=== PATIENT | female | born 1940 | race Caucasian/White ===

== ENCOUNTER 2016-11-20 14:16 | Outpatient (CLI) | payer MEDICARE, BC ==
--- NOTE | 2016-11-21 17:51 | PET ---
NUCLEAR MEDICINE FDG PET CT WHOLE BODY: (Positron Emission Tomography) DATE: 11/20/16 HISTORY: 76-year-old female with lymphoma, restaging. New liver mass found on CT of 11/10/16 from [facility]. COMPARISON: PET scan of 12/22/13. TECHNIQUE: IV injection F-18 Fluorodeoxyglucose (FDG) dose: 13.5 mCi Whole body PET and attenuation-correction CT performed from skull base to proximal thighs. FINDINGS: SUV (standard uptake value) numbers given are maximum SUV's: The previously described large left inferior axillary very hypermetabolic lymph node has resolved. T he previously mentioned hypermetabolic left axillary lymph node and left subpectoral (internal mamma ry) lymph node have also resolved. There are 3 new hypermetabolic lymph nodes at the thoracic inlet, left greater than right: SUV of 5. 9 at right tracheoesophageal groove; left paraesophageal SUV 9.9; just lateral to that one has SUV o f 13.3. There is a new hypermetabolic focus with SUV of 10.8 in the C3 vertebral body. There is a new right upper hilar lymph node with SUV of 8.9. New mild hypermetabolic left posterior hilar lymph node with SUV of 5.5. Right mediastinal lymph node anterior to the right mainstem bronch us with SUV of 3.9 is new. New finding of many hypermetabolic lesions in the left lobe, right lobe, and caudate lobes of the li cassie. For example, there is a moderately large region at the dome of the right lobe of the liver in h epatic segment 7 with SUV of 12.6. (These are the solid masses, not the multiple pre-existing benign hepatic cysts). There is severe hypermetabolic activity throughout very enlarged, matted lymph nodes in the beata he patis, with SUV up to 16.1. Multiple large hypermetabolic upper retroperitoneal periaortic lymph nodes. For example, one on the left has SUV of 15.6. No hypermetabolic lymph nodes are identified in the lower portion of the retroperitoneum. A focus of hypermetabolic activity with SUV of 6.1 in the vicinity of the left external iliac chain may instea d represent activity in a portion of distal ureter. Otherwise, no definite evidence of involvement o f lymph nodes in the rest of the pelvis. IMPRESSION: 1. A large number of malignant foci, new since the previous PET scan of 12/22/13. These could eithe r represent involvement by lymphoma or metastatic lesions from another primary malignancy. 2. The most severe involvement involves the upper paraaortic lymph nodes and periportal lymph nodes . 3. Numerous new hepatic malignant lesions. 4. New bilateral hilar malignant lesions, right greater than left, and right mediastinal lymph node . 5. New malignant lymph nodes at the thoracic inlet bilaterally. 6. New single intraosseous malignant activity in the upper cervical spine. 7. The previous malignant activity involving the left axillary and left internal mammary lymph node s have resolved. JANES Alanis POS: [facility]
== END 2016-11-20 14:17 | disposition home or self-care (01) ==
LOC: PET 14:16
PROVIDERS: ATTEND Internal Medicine Hematology & Oncology
DX: C84.48 Peripheral T-cell lymphoma, not elsewhere classified, lymph nodes of multiple sites (principal); C22.8 Malignant neoplasm of liver, primary, unspecified as to type
CPT/HCPCS: 78815; A9552

== ENCOUNTER → 2016-11-24 | Day surgery (SDC) | payer MEDICARE, BC ==
[2016-11-24 08:40] LABS: #Basophils 0.1 thou/uL (0.0-0.2); #Lymphocytes 0.7 thou/uL (1.20-3.40); #Monocytes 0.7 thou/uL (0.11-0.59); #Neutrophils 6.2 thou/uL (1.40-6.50); %Basophils 1.5 % (0.0-1.0); %Eosinophils 0.2 % (0.0-10.0); %Lymphocytes 9.4 % (21.0-51.0); %Monocytes 9.1 % (0.0-10.0); Hematocrit 36.3 % (36.0-47.0); Mean Platelet Volume 5.6 fL (7.4-10.4); White Blood Cell (WBC) Count 7.7 thou/uL (4.8-10.8)
[2016-11-24 08:49] LABS: PTT 33.2 SEC (22.9-36.1); Prothrombin Time 14.8 SEC (12.0-14.7)
[2016-11-24 09:32] VITALS: TEMP 98.8
--- NOTE | 2016-11-24 12:39 | CT ---
CT GUIDED LIVER BIOPSY: 11/24/2016 HISTORY: Multiple liver masses. TECHNIQUE: Informed consent was obtained from the patient. The left hepatic lobe lesion was prepped and draped in the usual sterile manner. Using CT guidance, the left hepatic lobe lesion was localized. A sma ll dermatotomy was made after 1% Lidocaine solution was used to anesthetize the overlying soft tissu es. An outer 17 gauge needle was placed, under CT guidance, into the left hepatic lesion. Three 18 gauge, 2.2 cm core biopsies were obtained. All three specimens were given to the pathologist for f urther workup, including full flow cytometry. No complications encountered during the course of the exam. A single Gelfoam pledget was placed in the biopsy tract. Successful CT-guided liver mass biopsy. Pathology is pending. POS: [facility]
== END ==
LOC: CT 08:26
PROVIDERS: ATTEND Internal Medicine Hematology & Oncology
DX: C86.5 Angioimmunoblastic T-cell lymphoma (principal); C22.8 Malignant neoplasm of liver, primary, unspecified as to type; H43.819 Vitreous degeneration, unspecified eye; M19.90 Unspecified osteoarthritis, unspecified site
CPT/HCPCS: 36415; 47000; 77012; 85025; 85610; 85730; 88184; 88307; 88312; 88333; 88334; 88341; 88342; 88360

== ENCOUNTER 2017-02-01 08:14 | Outpatient (CLI) | payer MEDICARE, BC ==
--- NOTE | 2017-02-01 15:11 | PET ---
PET CT EVALUATION FROM SKULL TO MID THIGH: INDICATION: History of lymphoma; restaging exam. TECHNIQUE: PET CT images were obtained from the skull base to the mid thighs. CT images were obtained for atten uation correction purposes only. 11.46 mCi of F18-FDG IV were administered for the exam. COMPARISON: Recent PET CT evaluation 11/20/16. FINDINGS: The biodistribution for the examination appears acceptable. HEAD AND NECK: There is worsening hypermetabolic lymphadenopathy seen within the posterior neck chains as well as wi thin the supraclavicular regions bilaterally. There are numerous hypermetabolic lymph nodes seen wit hin the bilateral neck chains as well as within the posterior occipital region. CHEST: The previously seen hypermetabolic lymph nodes within the upper mediastinum just adjacent to the thyr oid gland have largely resolved; however, there is a persistent hypermetabolic lymph node seen adjace nt to the left thyroid lobe with a peak SUV value of 8.4 and a mean value of 5.39. Additionally, the re are numerous new hypermetabolic superclavicular lymph nodes now present. There is hypermetabolic activity seen adjacent to the distal clavicle suspicious for a new osseous met. The previously seen hypermetabolic right suprahilar and left posterior hilar lymph nodes have diminished in uptake; howev er, there is a new hypermetabolic lymph node seen adjacent to the right paravertebral region. There is an additional hypermetabolic pericardial lymph node now present with a peak SUV value of 7.09 and mean value of 5.07. No hypermetabolic pleural effusion is grossly evident. ABDOMEN AND PELVIS: There are more numerous hypermetabolic lesions involving the liver suspicious for worsening hypermeta bolic metastatic disease of the liver. The large confluent lymphadenopathy involving the upper periaortic region has largely diminished; how ever, it has been replaced with newer areas of hypermetabolic lymphadenopathy of the upper abdomen. The most prominent is seen to the right aspect of the IVC where this enlarged lymph node has a peak S UV value of 59 and a mean value of 9.65. There remain a few scattered hypermetabolic lymph nodes wit hin the periaortic region. Prominent activity within the renal collecting system slightly limits the image detail. No definite hypermetabolic lymphadenopathy is seen within the pelvis. Again seen is a fibroid uterus and a moderate amount of retained stool within the colon. SKIN AND OSSEOUS STRUCTURES: There is worsening hypermetabolic osseous metastatic involvement. There are new foci of hypermetabolic activity seen within the sacral promontory and bilateral manolo. There is a new hypermetabolic lesion within the right acetabulum with a peak SUV value of 10.21 and a mean value of 7.46. There are new metastatic lesions involving the spinous process of L3, the left aspect of T12 vertebral body, the right transverse process of T4, the right C6 lamina, and the left d istal clavicle. The previously seen C3 osseous metastatic lesion is no longer identified. IMPRESSION: Abnormal PET scan. Findings of mixed response to therapy. Some of the hypermetabolic lymphadenopathy is seen within the upper aspect of the mediastinum, both hilar regions and upper abdomen have intervally resolved; mojica cassie, they have been replaced with additional foci of new hypermetabolic lymphadenopathy. There is wo rsening hypermetabolic metastatic disease of the liver and osseous structures. Overall, findings are consistent with worsening disease. POS: [facility]
== END 2017-02-01 08:15 | disposition home or self-care (01) ==
LOC: PET 08:14
PROVIDERS: ATTEND Internal Medicine Hematology & Oncology
DX: C84.48 Peripheral T-cell lymphoma, not elsewhere classified, lymph nodes of multiple sites (principal); C79.51 Secondary malignant neoplasm of bone; C78.7 Secondary malignant neoplasm of liver and intrahepatic bile duct
CPT/HCPCS: 78815; A9552

== ENCOUNTER 2017-04-28 08:07 | Outpatient (CLI) | payer MEDICARE, BC ==
--- NOTE | 2017-04-28 12:22 | PET ---
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 Status post last chemotherapy on 04/14/17 . Exam requested for restaging. TECHNIQUE: PET scanning with CT attenuation correction was performed from the base of the brain through the prox imal thighs following the intravenous of 12mCi FDG. Imaging was performed after an uptake interval of 46 minutes. COMPARISON: PET CT dated 02/01/17. FINDINGS: There has been interval resolution of the numerous lesions seen on the previous PET scan. No lou hy permetabolism is noted in the neck, chest, abdomen, pelvis, or inguinal regions. No hypermetabolic pu lmonary nodules, liver, adrenal, or skeletal lesions are identified. There is physiologic activity in the GI and tracts. Uptake is also noted in the brown fat in the l ower neck. The CT scan used for attenuation correction demonstrates no evidence of pleural effusions or ascites. The previously noted lesions do not demonstrate an uptake above background level. This corresponds to a Deauville criteria score of 1. IMPRESSION: Complete response (Deauville score 1) to therapy since 02/01/17. POS: [facility]
== END 2017-04-28 08:08 | disposition home or self-care (01) ==
LOC: PET 08:07
PROVIDERS: ATTEND Internal Medicine Hematology & Oncology
DX: C84.48 Peripheral T-cell lymphoma, not elsewhere classified, lymph nodes of multiple sites (principal)
CPT/HCPCS: 78815; A9552

== ENCOUNTER 2017-11-03 08:08 | Outpatient (CLI) | payer MEDICARE, BC ==
--- NOTE | 2017-11-03 11:25 | PET ---
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 Patient is ongoing chemotherapy. Exam req uested for restaging. TECHNIQUE: PET scanning with CT attenuation correction was performed from the base of the brain through the prox imal thighs following the intravenous administration of 12.3 mCi F18-FDG in the left antecubital devaughn a. Imaging performed after an uptake interval of 57 minutes. COMPARISON: PET CT dated 04/28/17. FINDINGS: Interval development of multiple new lesions has occurred since the previous study. There is a hyperm etabolic right internal mammary lymph node with a SUV of 3.3. A small hypermetabolic soft tissue nodu le anterior to the right lobe of the liver is noted with a SUV of 3.8. There are new hypermetabolic liver lesions with a maximum SUV of 7.7 in the posterior segment of the right lobe. Hypermetabolic lymph nodes in the abdomen are present with SUV of 5.2 in the anterior peripancreatic region and 3.7 in the left paraaortic lymph node. Focus of increased uptake in the right sacrum has a SUV of 9.5. There is physiologic activity in the GI and tracts, and visualized portions of the brain. No hypermetabolic pulmonary nodules or adrenal lesions are seen. The CT scan used for attenuation correction demonstrates no evidence of pleural effusions or ascites. Multiple hepatic cysts and calcified uterine fibroids are again noted. IMPRESSION: Progressive disease (Deauville score of 5) since 04/28/17. POS: [facility]
== END 2017-11-03 08:09 | disposition home or self-care (01) ==
LOC: PET 08:08
PROVIDERS: ATTEND Internal Medicine Hematology & Oncology
DX: C86.5 Angioimmunoblastic T-cell lymphoma (principal)
CPT/HCPCS: 78815; A9552

== ENCOUNTER 2019-01-12 09:02 | Outpatient (CLI) | payer MEDICARE, BC ==
--- NOTE | 2019-01-12 11:57 | PET ---
PET SCAN WITH CT ATTENUATION CORRECTION: HISTORY: T-cell lymphoma. TECHNIQUE: PET scan with CT attenuation correction is performed from the base of brain to the proximal thighs fo llowing the intravenous administration of 11.5 mCi of [id number]. COMPARISON: 07/20/2018 performed at outside institution. CORRELATION: Pet report for 04/11 and 03/14/2018. FINDINGS: Head and neck: Increased FDG localization anterior to the C5-C6 level with a maximum SUV of 12.2. Right neck has a hypermetabolic lymph node with a maximum SUV of 2.6. Chest: Increased FDG avidity in the right aspect of the mediastinum with a maximum SUV between 8.4 an d 8.7. Increased FDG avidity in the right hilum with a maximum SUV of 6.5. Increased FDG avidity in the left, the maximum SUV of 6.7. Extensive lung parenchymal nodules. The overall size and number of the nodules has increased when com pared to the previous exam. Press Assistant hypermetabolic lymph node in the right lower lobe has a maximum SUV of 3.3. Press Assistant hypermetabolic nodule in the left lower lobe has a maximum SUV of 3.4. Abdomen and pelvis: Worsening multifocal increased FDG avidity throughout the liver. Hepatic cyst is redemonstrated. There is evidence of hypermetabolic lymphadenopathy in the right aspect of the retroperitoneum with a maximum SUV of 14.8. There is evidence of involvement of the spleen, which has developed since the previous examination. Maximum SUV of the spleen is 5.7. Osseous structures: Progression of osseous metastases. Multifocal hypermetabolic foci involving the a xial skeleton. T4 has a maximum SUV of 7.4, T8 has a maximum SUV of 17.9, T12 has a maximum SUV of 8.7 and S1 is a maximum SUV of 7.7. IMPRESSION: Worsening multifocal malignancy/metastases. Deauville score 5. Transcribed Date/Time: 01/12/2019 12:38 PM
== END 2019-01-12 09:03 | disposition home or self-care (01) ==
LOC: PET 09:02
PROVIDERS: ATTEND Internal Medicine Hematology & Oncology
DX: C84.48 Peripheral T-cell lymphoma, not elsewhere classified, lymph nodes of multiple sites (principal); C83.89 Other non-follicular lymphoma, extranodal and solid organ sites; C79.31 Secondary malignant neoplasm of brain
CPT/HCPCS: 78815; A9552